=== PATIENT | male | born 1955 | race Caucasian/White ===

== ENCOUNTER → 2021-12-03 | Outpatient (CLI) | payer OTHER ==
[~2021-12-03] MED LIST: ACET500 PO; CHOL10002; CYCL10 PO; FISH OIL + D31 EACH; GABA300 PO; IBUP400; NAPR500; Omeprazole20 M1
[2021-12-03 22:22] LABS: Alanine Aminotransfer (ALT/SGP 37 U/L (12-78); Albumin, Blood 3.7 g/dL (3.4-5.0); Albumin/Globulin Ratio 1.1 (0.8-1.8); Alk Phos 53 U/L (50-136); Anion Gap 5 mmol/L (6-16); Aspartate Aminotrans (AST/SGOT 21 U/L (12-37); Bilirubin, Total 0.7 mg/dL (0.1-1.0); Blood Urea Nitrogen 24 mg/dL (8-24); CO2, Blood 27 mmol/L (21-32); Calcium, Blood 8.9 mg/dL (8.5-10.1); Chloride, Blood 107 mmol/L (98-108); Cholesterol 184 mg/dL (50-200); Globulin, Blood 3.4 g/dL (2.2-4.0); Glomerular Filtration Rate >60 (60-); Glucose, Blood 92 mg/dL (70-99); Sodium, Blood 139 mmol/L (136-145); Total Protein, Blood 7.1 g/dL (6.4-8.2); Triglycerides 110 mg/dL (30-160); Very Low Density Lipoprot Chol 22 mg/dL (6-32)
[2021-12-03 22:26] LABS: CHOL/HDL RATIO 2.7; HDL Cholesterol 68 mg/dL (>39); LDL/HDL RATIO 1.4; Low Density Lipoprotein Chol 94 mg/dL (0-110)
[2021-12-05 07:09] LABS: HIV AB/P24 AG SCREEN Non Reactive (Non Reactive)
== END | disposition home or self-care (01) ==
LOC: LAB SHORT 15:13
PROVIDERS: Family Medicine
DX: Z00.00 Encounter for general adult medical examination without abnormal findings (principal); Z13.6 Encounter for screening for cardiovascular disorders; E03.9 Hypothyroidism, unspecified; N18.30 Chronic kidney disease, stage 3 unspecified
CPT/HCPCS: 80053; 80061; 84443; 87389

== ENCOUNTER 2023-07-19 10:56 | Observation (INO) | payer MEDICARE ==
[~2023-07-19] VITALS: Ht 182.9 cm; Wt 88.5 kg
[~2023-07-19 10:56] MED LIST changes: -CHOL10002; +FISH OIL + D3 SOFTGE PO; -FISH OIL + D31 EACH; +VITAMIN D310 MC4 PO
[2023-07-19] MEDS ORDERED: LOVASTATIN20 MG PO (11:06)
[2023-07-19] MEDS ORDERED: BACL20 PO (11:07)
[2023-07-19] MEDS ORDERED: LISI20 PO (11:07)
[2023-07-19 11:46] LABS: BASOPHILS ABSOLUTE AUTO 0.05 K/mm3 (0.00-0.23); BASOPHILS PERCENT AUTO 1 % (0-2); EOSINOPHILS ABSOLUTE AUTO 0.07 K/mm3 (0.00-0.68); EOSINOPHILS PERCENT AUTO 1 % (0-6); Hematocrit 44.7 % (37.0-53.0); Hemoglobin 15.4 g/dL (13.5-17.5); IMMATURE GRAN ABSOLUTE AUTO 0.01 K/mm3 (0.00-0.10); IMMATURE GRAN PERCENT AUTO 0 % (0-1); LYMPHOCYTES PERCENT AUTO 30 % (21-46); MONOCYTES ABSOLUTE AUTO 0.52 K/mm3 (0.16-1.47); MONOCYTES PERCENT AUTO 10 % (4-13); Mean Corpuscular HGB 30.9 pg (26.0-34.0); Mean Corpuscular HGB Conc 34.5 g/dL (31.5-36.5); Mean Corpuscular Volume 90 fL (80-100); Mean Platelet Volume 9.9 fL (9.1-12.4); NEUTROPHILS ABSOLUTE AUTO 2.94 K/mm3 (1.96-9.15); NEUTROPHILS PERCENT AUTO 58 % (41-73); Platelet Count 227 K/mm3 (150-400); RDW Coefficient Variation 12.6 % (11.7-14.2); RDW Standard Deviation 41.5 fL (35.1-46.3); Red Blood Cell Count 4.98 M/mm3 (4.30-5.90); White Blood Cell Count 5.09 K/mm3 (4.00-11.30)
[2023-07-19 12:00] LABS: Albumin, Blood 3.8 g/dL (3.4-5.0); Albumin/Globulin Ratio 1.1 (0.8-1.8); Bilirubin, Total 0.9 mg/dL (0.1-1.0); Bun/Creatinine Ratio 21.2 (12.0-20.0); Calcium, Blood 9.5 mg/dL (8.5-10.1); Creatinine, Blood 1.18 mg/dL (0.60-1.20); Globulin, Blood 3.6 g/dL (2.2-4.0); Phosphorus, Blood 3.2 mg/dL (2.5-4.9); Potassium, Blood 4.2 mmol/L (3.5-5.5); Total Protein, Blood 7.4 g/dL (6.4-8.2)
[2023-07-19 12:10] LABS: International Normalized Ratio 0.99; Prothrombin Time Results 10.4 Sec (9.7-11.5)
[2023-07-19 15:55] LABS: Source, Urine Clean Catch
[2023-07-19 16:00] LABS: Appearance, Urine Clear (Clear); Bilirubin, Urine Neg (Neg); Blood, Urine Neg (Neg); Color, Urine Yellow (P-Yellow); Glucose Qualitative, Urine Neg (Neg); Ketones, Urine Neg (Neg); Leukocyte Esterase, Urine Neg (Neg); Nitrite, Urine Neg (Neg); Protein, Urine Neg (Neg); Urobilinogen, Urine NORM (Normal)
--- NOTE | 2023-07-19 17:32 | NUR ---
ADMIT REPORT RECEIVED FROM ER. PT ARRIVED VIA GURNEY ACCOMPANIED BY FAMILY AND OUTCOMES ANALYST. PT ALERT AND OREINTED. ABLE TO WALK TO ROOM BED. CONTINUE POC.
[2023-07-19 19:37] VITALS: BP 142/91
[2023-07-20 04:42] VITALS: BP 139/81
[2023-07-20 05:28] LABS: BASOPHILS ABSOLUTE AUTO 0.04 K/mm3 (0.00-0.23); BASOPHILS PERCENT AUTO 1 % (0-2); EOSINOPHILS ABSOLUTE AUTO 0.21 K/mm3 (0.00-0.68); EOSINOPHILS PERCENT AUTO 3 % (0-6); Hematocrit 45.8 % (37.0-53.0); Hemoglobin 15.3 g/dL (13.5-17.5); IMMATURE GRAN ABSOLUTE AUTO 0.03 K/mm3 (0.00-0.10); IMMATURE GRAN PERCENT AUTO 1 % (0-1); LYMPHOCYTES ABSOLUTE AUTO 2.08 K/mm3 (0.84-5.20); LYMPHOCYTES PERCENT AUTO 32 % (21-46); MONOCYTES ABSOLUTE AUTO 0.63 K/mm3 (0.16-1.47); MONOCYTES PERCENT AUTO 10 % (4-13); Mean Corpuscular HGB 30.5 pg (26.0-34.0); Mean Corpuscular HGB Conc 33.4 g/dL (31.5-36.5); Mean Corpuscular Volume 91 fL (80-100); Mean Platelet Volume 9.7 fL (9.1-12.4); NEUTROPHILS ABSOLUTE AUTO 3.61 K/mm3 (1.96-9.15); NEUTROPHILS PERCENT AUTO 55 % (41-73); Platelet Count 217 K/mm3 (150-400); RDW Coefficient Variation 12.8 % (11.7-14.2); RDW Standard Deviation 42.5 fL (35.1-46.3); Red Blood Cell Count 5.01 M/mm3 (4.30-5.90)
[2023-07-20 05:55] LABS: Alanine Aminotransfer (ALT/SGP 37 U/L (12-78); Albumin, Blood 3.4 g/dL (3.4-5.0); Albumin/Globulin Ratio 0.9 (0.8-1.8); Alk Phos 43 U/L (50-136); Anion Gap 5 mmol/L (6-16); Aspartate Aminotrans (AST/SGOT 25 U/L (12-37); Bilirubin, Total 0.5 mg/dL (0.1-1.0); Blood Urea Nitrogen 25 mg/dL (8-24); Bun/Creatinine Ratio 21.6 (12.0-20.0); CHOL/HDL RATIO 2.4; CO2, Blood 26 mmol/L (21-32); Calcium, Blood 8.7 mg/dL (8.5-10.1); Chloride, Blood 109 mmol/L (98-108); Cholesterol 163 mg/dL (50-200); Creatinine, Blood 1.16 mg/dL (0.60-1.20); Globulin, Blood 3.6 g/dL (2.2-4.0); Glomerular Filtration Rate 69 (60-); Glucose, Blood 97 mg/dL (70-99); HDL Cholesterol 68 mg/dL (>39); LDL/HDL RATIO 1.1; Low Density Lipoprotein Chol 75 mg/dL (0-110); Potassium, Blood 4.1 mmol/L (3.5-5.5); Sodium, Blood 140 mmol/L (136-145); Triglycerides 99 mg/dL (30-160); Very Low Density Lipoprot Chol 19 mg/dL (6-32)
--- NOTE | 2023-07-20 06:10 | NUR ---
SHIFT SUMMARY: NO ACUTE EVENTS. NO EVENTS ON TELEMETRY, SINUS SUSANA WHILE SLEEPING. NEURO EXAM STABLE; RESIDUAL L ARM AND HAND WEAKNESS (STATES IS HAVING MOBILITY ISSUE WITH L SHOULDER ALSO), NO NYSTAGMUS NOTED. GAIT SLIGHTLY UNSTEADY, CALLS APPROPRIATELY BEFORE GETTING OOB. DENIED PAIN. AWAITING MRI AND CARDIAC ECHO.
[2023-07-20 07:28] VITALS: BP 116/80
[2023-07-20] MEDS ORDERED: ATOR80 PO (13:37)
[2023-07-20] MEDS ORDERED: ASPI81CH PO (13:37)
[2023-07-20] MEDS ORDERED: CLOP75 PO (13:37)
== END 2023-07-20 16:17 | disposition home or self-care (01) ==
LOC: ER 10:56 → MEDS 10:57
PROVIDERS: Emergency Medicine; ADMIT Internal Medicine
DX: I63.9 Cerebral infarction, unspecified (principal); G47.33 Obstructive sleep apnea (adult) (pediatric); E78.5 Hyperlipidemia, unspecified; I10 Essential (primary) hypertension; K21.9 Gastro-esophageal reflux disease without esophagitis; M19.90 Unspecified osteoarthritis, unspecified site; G89.29 Other chronic pain
CPT/HCPCS: 36415; 70450; 70496; 70498; 70551; 71046; 80053; 80061; 81003; 82947; 83735; 84100; 84443; 84484; 85025; 85610; 85730; 93005; 93010; 93246; 93306; 94760; 96372; 97110; 97116; 97161; 97165; 99284-25; A9270; G0378; J1650; Q9967

== ENCOUNTER 2025-10-22 10:20 | Observation (INO) | payer OTHER, MEDICARE ==
[~2025-10-22] VITALS: Ht 182.9 cm; Wt 90.0 kg
[2025-10-22] VITALS (16 sets, daily range): BP systolic 96–130; BP diastolic 61–99
[~2025-10-22 10:20] MED LIST changes: +ASPI81CH PO; +ATOR80 PO; +BACL20 PO; +CLOP75 PO; +LISI20 PO; +LOVASTATIN20 MG PO
[2025-10-22] MEDS ORDERED: Ondansetron HCl 2 MG / ML 2ML Vial IV ONE (10:25)
[2025-10-22] MEDS ORDERED: Morphine Sulfate 4 MG/1 ML Injection IV ONE (10:25)
[2025-10-22 10:38] LABS: BASOPHILS ABSOLUTE AUTO 0.05 K/mm3 (0.00-0.23); BASOPHILS PERCENT AUTO 1 % (0-2); EOSINOPHILS ABSOLUTE AUTO 0.04 K/mm3 (0.00-0.68); EOSINOPHILS PERCENT AUTO 0 % (0-6); Hematocrit 43.5 % (37.0-53.0); Hemoglobin 14.7 g/dL (13.5-17.5); IMMATURE GRAN ABSOLUTE AUTO 0.04 K/mm3 (0.00-0.10); IMMATURE GRAN PERCENT AUTO 0 % (0-1); LYMPHOCYTES ABSOLUTE AUTO 1.22 K/mm3 (0.84-5.20); LYMPHOCYTES PERCENT AUTO 11 % (21-46); MONOCYTES ABSOLUTE AUTO 0.68 K/mm3 (0.16-1.47); MONOCYTES PERCENT AUTO 6 % (4-13); Mean Corpuscular HGB Conc 33.8 g/dL (31.5-36.5); Mean Corpuscular Volume 91 fL (80-100); NEUTROPHILS ABSOLUTE AUTO 8.73 K/mm3 (1.96-9.15); NEUTROPHILS PERCENT AUTO 81 % (41-73); NRBC ABSOLUTE 0.00 K/mm3 (0.00-0.02); NRBC Auto 0.0 /100 WBC (0.0-0.2); Platelet Count 204 K/mm3 (150-400); RDW Coefficient Variation 12.7 % (11.7-14.2); RDW Standard Deviation 42.6 fL (35.1-46.3)
[2025-10-22] MEDS ORDERED: HYDROmorphone HCl/Pf 1MG SYR IV ONE ×2 (10:55→13:30)
[2025-10-22 11:07] LABS: Alanine Aminotransfer (ALT/SGP 31.0 U/L (12-78); Albumin, Blood 3.7 g/dL (3.4-5.0); Albumin/Globulin Ratio 1.2 (0.8-1.8); Anion Gap 7.0 mmol/L (3-11); Aspartate Aminotrans (AST/SGOT 24.0 U/L (12-37); Bilirubin, Total 0.4 mg/dL (0.1-1.0); Blood Urea Nitrogen 25.0 mg/dL (8-24); CO2, Blood 25.0 mmol/L (21-32); Calcium, Blood 8.4 mg/dL (8.5-10.1); Chloride, Blood 110.0 mmol/L (98-108); Creatinine, Blood 1.19 mg/dL (0.60-1.20); Globulin, Blood 3.2 g/dL (2.2-4.0); Glucose, Blood 153.0 mg/dL (70-99); Potassium, Blood 4.3 mmol/L (3.5-5.5); Sodium, Blood 138.0 mmol/L (136-145); Total Protein, Blood 6.9 g/dL (6.4-8.2)
[2025-10-22] MEDS ORDERED: NS 1,000 ML IV SCH ×2 (12:55→13:30)
[2025-10-22] MEDS ORDERED: HYDROmorphone HCl/Pf 1MG SYR IV PRN ×3 (13:30→14:35)
[2025-10-22] MEDS ORDERED: Ondansetron HCl 2 MG / ML 2ML Vial IV PRN ×2 (13:30→14:35)
[2025-10-22] MEDS ORDERED: FLU VACC TS2025(65UP)/MF59C/PF 45 MCG/0.5 ML SYRINGE IM SCH (13:30)
[2025-10-22] MEDS ORDERED: FentaNYL Citrate 50 MCG/ML 2 ML Injection ONE (13:32)
[2025-10-22] MEDS ORDERED: Rocuronium Bromide 10 MG/ML 5ML Injection IV ONE (13:32)
[2025-10-22] MEDS ORDERED: Midazolam HCl 1MG / ML 2ML Vial ONE (13:33)
[2025-10-22] MEDS ORDERED: Piperacillin/Tazobactam Sod 3.375 GM in NS 100 ML IV ONE (13:40)
[2025-10-22] MEDS ORDERED: Bupivacaine 0.5% HCl 5 MG/ML 30MLVIAL ONE (14:17)
[2025-10-22] MEDS ORDERED: Phenylephrine HCl 100 MCG/ML-NS 10MLSYR (1MG/10ML) ONE (14:31)
[2025-10-22] MEDS ORDERED: Dexamethasone Sod Phos 10 MG/ML 1ML VIAL ONE (14:32)
[2025-10-22] MEDS ORDERED: Ketorolac Tromethamine 30mg Vial ONE (14:32)
[2025-10-22] MEDS ORDERED: Ondansetron HCl 2 MG / ML 2ML Vial ONE (14:32)
[2025-10-22] MEDS ORDERED: FentaNYL Citrate 50 MCG/ML 2 ML Injection IV PRN ×2 (14:35)
[2025-10-22] MEDS ORDERED: Sugammadex Sodium 200 MG/2ML SDV (100 MG/ML) ONE (14:47)
[2025-10-22] MEDS ORDERED: Polyethylene Glycol 3350 17 gm PO PRN (15:50)
--- NOTE | 2025-10-22 16:11 | NUR ---
GAVE REPORT TO MEDICAL LAURI RN AND ELLIOT TRANSFERED. CALLED DR. Mancuso JUST PRIOR TO TRANFER OUT OF UNIT TO MAKE CERTAIN AWARE THAT PATIENT HAS HAD NO ANTIBIOTIC. NO NEW ORDERS.
[2025-10-22] MEDS ORDERED: GABA300 PO (16:19)
[2025-10-22] MEDS ORDERED: Pantoprazole Sodium 40 MG Injection IV SCH (16:30)
--- NOTE | 2025-10-22 17:37 | NUR ---
PT PLEASANT SINCE ADMIT THIS AFTERNOON. STATES NOT IN PAIN AT THIS TIME. RECOMMENDED SBA IF AT ALL DIZZY OR UNCOMFORTABLE. 4 LAP OP SITES. CDI SUPER GLUED CLOSED. ALL 4 SITES NO SWELLING OR HEMATOMA NOTED UPON ARRIVAL. VSS. AT BEDSIDE. STATES WILL CALL WHEN/IF PAIN INCREASES. BED IN LOW POSITION, CALL LITE IN REACH, CALLS APPROP
[2025-10-22] MEDS ORDERED: Piperacillin/Tazobactam Sod 3.375 GM in NS 100 ML IV SCH (18:00)
[2025-10-23 00:29] VITALS: BP 100/63
[2025-10-23 04:08] VITALS: BP 102/60
[2025-10-23 04:44] LABS: Hematocrit 40.5 % (37.0-53.0); Hemoglobin 13.9 g/dL (13.5-17.5); Mean Corpuscular HGB Conc 34.3 g/dL (31.5-36.5); Mean Corpuscular Volume 91 fL (80-100); NRBC ABSOLUTE 0.00 K/mm3 (0.00-0.02); NRBC Auto 0.0 /100 WBC (0.0-0.2); Platelet Count 191 K/mm3 (150-400); RDW Coefficient Variation 12.7 % (11.7-14.2); RDW Standard Deviation 42.1 fL (35.1-46.3)
[2025-10-23 05:05] LABS: Alanine Aminotransfer (ALT/SGP 53.0 U/L (12-78); Albumin, Blood 3.3 g/dL (3.4-5.0); Albumin/Globulin Ratio 1.1 (0.8-1.8); Anion Gap 9.0 mmol/L (3-11); Aspartate Aminotrans (AST/SGOT 31.0 U/L (12-37); Bilirubin, Total 1.2 mg/dL (0.1-1.0); Blood Urea Nitrogen 21.0 mg/dL (8-24); CO2, Blood 23.0 mmol/L (21-32); Calcium, Blood 8.1 mg/dL (8.5-10.1); Chloride, Blood 110.0 mmol/L (98-108); Creatinine, Blood 1.05 mg/dL (0.60-1.20); Globulin, Blood 3.0 g/dL (2.2-4.0); Glucose, Blood 118.0 mg/dL (70-99); Potassium, Blood 4.7 mmol/L (3.5-5.5); Sodium, Blood 137.0 mmol/L (136-145); Total Protein, Blood 6.3 g/dL (6.4-8.2)
--- NOTE | 2025-10-23 05:25 | NUR ---
SHIFT SUMMARY PT RESTING COMFORTABLY, MEDICATED PER EMAR X1 IN EVENING FOR 2/10 PAIN IN ABDOMEN FOLLOWING CHOLECYSTECTOMY WITH DR. PEREZ. PT HOPEFUL TO RETURN HOME TODAY. HIS IS HAVING A LUMBAR PROCEDURE IN [place]. NS INFUSING 100 ML/HR IN LAC. ZOSYN Q6H. A&OX4. STEADY GAIT, INDEPENDENT IN ROOM. EUPNEA ON ROOM AIR. 4 LAPAROSCOPIC PORTALS ARE CDI WITH INTACT CLEAR TISSUE ADHESIVE.
[2025-10-23 07:30] VITALS: BP 108/69
[2025-10-23] MEDS ORDERED: Enoxaparin 30 MG/0.3 ML SYR SC SCH (09:00)
[2025-10-23] MEDS ORDERED: ASPI81CH PO (09:06)
--- NOTE | 2025-10-23 10:25 | NUR ---
NOTE PT REPORTED TAKE MOST MEDS AT NIGHT. THIS RN UPDATED MED REC PER DR. QUINONES AND PT REQUEST. PT REPORTS "MEDS NOT IN SYSTEM CORRECT. TAKE MOST PILLS AT HOME, I WOULD LIKE TO TAKE GABAPENTEN AND TYLENOL THIS AM. THEN TAKE REST AT HOME." DR. QUINONES NOTIFIED. DR. QUINONES REPORTED D/C CONT FLUIDS. PT EATING ADEQUATE AND DENIED NAUSEA. PT POST OP VSS STABLE
[2025-10-23] MEDS ORDERED: ACET500 PO (10:39)
--- NOTE | 2025-10-23 12:17 | NUR ---
DISCHARGE NOTE PT A&OX4. PT ADMITTED DUE TO ACUTE ASHLYN. PT POST OP DAY 1. PT POST OP VSS. PT INDEPENDENT IN ROOM. PT TOLERATES DIET. PT REPORTS "NO NAUSEA." PT REPORTS "MIMIMAL DISCOMFORT AT EPIGASTRIC." PT HAS LAP SITS ABD X4. ALL C/D/I, DR. PEREZ CLEARED PT FOR DISCHARGE. DR. QUINONES PUT IN DISCHARGE ORDERS. DIRECTOR PHYSICAL THERAPY COMPLETED DISCHARGE. DIRECTOR PHYSICAL THERAPY WENT OVER INSTRUCTIONS AND MEDS. NO NEW MEDS ADDED. PT REPORTS "NO NEED FOR PRESCRIPTION FOR TYLENOL." PT IV D/C, PT TELE D/C, TELE NOTIFIED, PT ESCORTED VIA WHEELCHAIR BY REPLENISHMENT MERCHANDISING ASSOCIATE. 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
== END 2025-10-23 11:36 | disposition home or self-care (01) ==
LOC: ER 10:20 → MEDS 10:21 → ENPENDDIS 10-23 10:23 → MEDS 10-23 11:36
PROVIDERS: Emergency Medicine; Surgery; ADMIT Internal Medicine
PROC: 0FT44ZZ Resection of Gallbladder, Percutaneous Endoscopic Approach (ICD-10-PCS; principal; 2025-10-22 14:45)
DX: K80.12 Calculus of gallbladder with acute and chronic cholecystitis without obstruction (principal); I10 Essential (primary) hypertension; E78.5 Hyperlipidemia, unspecified; K21.9 Gastro-esophageal reflux disease without esophagitis; I25.10 Atherosclerotic heart disease of native coronary artery without angina pectoris; Z88.8 Allergy status to other drugs, medicaments and biological substances; Z87.891 Personal history of nicotine dependence; Z79.899 Other long term (current) drug therapy
CPT/HCPCS: 36415; 71275; 74175; 76705; 80053; 83690; 83880; 84484; 85025; 85027; 88304; 96374-59; 96375-59; 99285-25; A9270; J1100; J1171; J1885; J2250; J2270; J2371; J2405; J2470; J2543; J2704; J3010; J7030; Q9967